=== PATIENT | male | born 1945 | race Caucasian/White ===

== ENCOUNTER 2016-05-22 15:42 | Inpatient (IN) | payer MEDICARE, MEDICAID ==
[~2016-05-22] VITALS: Ht 162.6 cm; Wt 66.2 kg
[2016-05-22 20:19] LABS: CALCIUM 8.8 mg/dL (8.5-10.1); CARBON DIOXIDE 25.4 mmol/L (21-32); CHLORIDE SERUM 108 mmol/L (98-107); CREATININE SERUM 1.5 mg/dL (0.7-1.3); GLUCOSE SERUM 141 mg/dL (74-106); POTASSIUM SERUM 3.6 mmol/L (3.5-5.1); SODIUM SERUM 146 mmol/L (136-145)
[2016-05-22 20:25] LABS: PLATELET COUNT 186 x10^3mcL (130-400)
[2016-05-22 20:29] LABS: ALBUMIN 3.6 g/dL (3.4-5.0); ALKALINE PHOSPHATASE 78 U/L (46-116); ALT/SGPT 49 U/L (16-63); AST/SGOT 41 U/L (15-37); BILIRUBIN TOTAL 0.5 mg/dL (0.20-1.00); C REACTIVE PROTEIN 0.7 mg/dL (<=0.9)
[2016-05-22 20:29] LABS: UA SPECIFIC GRAVITY 1.015 (1.005-1.035); microscopic required? YES; urine erythrocyte 3+ (NEGATIVE)
[2016-05-22 20:35] LABS: T3 TOTAL 0.82 ng/mL
[2016-05-22 20:37] LABS: BASOPHIL % 0 % (0-2); RED CELL DISTRIBUTION WIDTH 14.9 % (11.5-14.5)
[2016-05-22 21:15] LABS: CK-MB < 0.5 ng/mL (0-3.6); CREATINE KINASE 64 U/L (39-308)
[2016-05-22 21:37] LABS: FREE T4 1.21 ng/dL (0.76-1.46); FREE THYROXINE INDEX 2.6 ug/dL (1.4-4.5); T4(THYROXINE) 7.8 ug/dL (4.7-13.3)
[2016-05-22 22:22] LABS: ERYTHROCYTE SED RATE 9 mm/hr (0-20)
[2016-05-23] VITALS (8 sets, daily range): BP systolic 82–97; BP diastolic 55–60
[2016-05-23 01:17] LABS: MAGNESIUM 1.8 mg/dL (1.8-2.4); PHOSPHOROUS 1.7 mg/dL (2.5-4.9)
[2016-05-23 01:20] LABS: CHOLESTEROL/HDL RATIO 5.3
[2016-05-24 06:06] VITALS: BP 99/53
[2016-05-24 07:15] LABS: CALCIUM 7.5 mg/dL (8.5-10.1); CARBON DIOXIDE 21.1 mmol/L (21-32); CHLORIDE SERUM 111 mmol/L (98-107); CREATININE SERUM 1.1 mg/dL (0.7-1.3); GLUCOSE SERUM 107 mg/dL (74-106); POTASSIUM SERUM 3.6 mmol/L (3.5-5.1); SODIUM SERUM 141 mmol/L (136-145)
[2016-05-24 07:21] LABS: ALBUMIN 2.4 g/dL (3.4-5.0)
[2016-05-24 07:34] LABS: BASOPHIL % 0.3 % (0-2); PLATELET COUNT 131 x10^3mcL (130-400)
[2016-05-24 10:15] VITALS: BP 103/71
[2016-05-24 12:58] VITALS: BP 108/69
[2016-05-24 15:35] VITALS: BP 96/61
[2016-05-24 18:24] VITALS: BP 112/80
[2016-05-24 21:31] VITALS: BP 114/78
[2016-05-25 05:52] VITALS: BP 95/60
[2016-05-25 06:21] LABS: BASOPHIL % 0.2 % (0-2); PLATELET COUNT 167 x10^3mcL (130-400)
[2016-05-25 06:58] LABS: CALCIUM 8.5 mg/dL (8.5-10.1); CARBON DIOXIDE 22.3 mmol/L (21-32); CHLORIDE SERUM 103 mmol/L (98-107); GLUCOSE SERUM 110 mg/dL (74-106); POTASSIUM SERUM 3.7 mmol/L (3.5-5.1); SODIUM SERUM 137 mmol/L (136-145)
[2016-05-25 07:10] LABS: RED CELL DISTRIBUTION WIDTH 14.8 % (11.5-14.5)
[2016-05-25 10:36] VITALS: BP 90/67
[2016-05-25 15:24] VITALS: BP 98/68
[2016-05-25 18:12] VITALS: BP 98/68
[2016-05-25 18:26] VITALS: BP 96/70
[2016-05-25] MEDS ORDERED: LEVAQUIN750 MG IV (19:45)
[2016-05-25] MEDS ORDERED: APAP/HYDROCODON1 T13 PO (19:45)
[2016-05-25] MEDS ORDERED: IPRATROPIUM BROM3 M2 HHN (19:45)
[2016-05-25] MEDS ORDERED: LAC PO (19:45)
[2016-05-25] MEDS ORDERED: ARTOS OU (19:46)
[2016-05-25] MEDS ORDERED: TYL325 PO (19:46)
[2016-05-25] MEDS ORDERED: PROS5 PO (19:46)
== END 2016-05-25 21:25 | DRG 871 ==
LOC: ED 15:42 → MU 22:32 → DU 22:32 → MU 05-25 12:53
PROVIDERS: Family Medicine; Specialist; ADMIT Family Medicine
DX: A41.51 Sepsis due to Escherichia coli [E. coli] (principal); J96.00 Acute respiratory failure, unspecified whether with hypoxia or hypercapnia; N17.0 Acute kidney failure with tubular necrosis; E43 Unspecified severe protein-calorie malnutrition; N39.0 Urinary tract infection, site not specified; E87.0 Hyperosmolality and hypernatremia; R65.20 Severe sepsis without septic shock; R31.0 Gross hematuria; K57.90 Diverticulosis of intestine, part unspecified, without perforation or abscess without bleeding; N20.0 Calculus of kidney; N40.0 Benign prostatic hyperplasia without lower urinary tract symptoms; R73.03 Prediabetes; Z16.30 Resistance to unspecified antimicrobial drugs; Z87.820 Personal history of traumatic brain injury; Z68.25 Body mass index [BMI] 25.0-25.9, adult
CPT/HCPCS: 36600; 83880; 84439; 94150; J0696; J1940; J1956; J3490; J7030; J7620; Q0092; Q0163